=== PATIENT | female | born 1960 | race Asian ===

== ENCOUNTER 2016-10-02 08:00 | Emergency (ER) | payer OTHER ==
[~2016-10-02] VITALS: Ht 154.9 cm; Wt 65.3 kg
[2016-10-02] MEDS ORDERED: FLEXERIL10 MG PO (09:51)
[2016-10-02] MEDS ORDERED: NAPROXEN500 MG PO (09:51)
[2016-10-02 10:07] VITALS: BP 184/84
== END 2016-10-02 10:21 | disposition home or self-care (01) ==
LOC: EME 08:00
DX: S20.20XA Contusion of thorax, unspecified, initial encounter (principal); S60.222A Contusion of left hand, initial encounter; V49.50XA Passenger injured in collision with unspecified motor vehicles in traffic accident, initial encounter; I10 Essential (primary) hypertension; E78.5 Hyperlipidemia, unspecified; E11.9 Type 2 diabetes mellitus without complications
CPT/HCPCS: 71120; 73130; 99281; 99283; J1885